=== PATIENT | female | born 1960 | race Caucasian/White ===

== ENCOUNTER 2016-09-23 14:23 | Outpatient (CLI) ==
--- NOTE | 2016-09-23 15:04 | US ---
EXAM: Ultrasound venous Doppler left lower extermity HISTORY: Pain and leg, tenderness, swelling COMPARISON: None TECHNIQUE: Venous duplex ultrasound of the left lower extremity was performed using color, campbell-sca le, and Doppler flow imaging. FINDINGS: There is normal color flow and compression of the left common femoral, greater saphenous, profunda femoral, femoral, popliteal, peroneal, posterior tibial, and anterior tibial veins without evidence of intraluminal thrombus. No reflux is identified. IMPRESSION: No left lower extremity deep venous thrombosis.
== END 2016-09-23 14:24 | disposition home or self-care (01) ==
LOC: RAD 14:23
PROVIDERS: ATTEND Physician Assistant Medical
DX: M79.605 Pain in left leg (principal)